=== PATIENT | female | born 1970 | race Caucasian/White ===

== ENCOUNTER → 2021-04-20 11:35 | Outpatient (CLI) | payer OTHER, SELFPAY ==
[2021-04-20 20:09] LABS: Alanine Aminotransferase 36 IU/L (<35); Albumin 4.1 g/dL (3.5-5.0); Albumin Globulin Ratio 1.4 (1.0-2.8); Alkaline Phosphatase 86 U/L (38-126); Aspartate Aminotransferase 33 IU/L (14-36); BUN Creatinine Ratio 16.4 (6-22); Bilirubin Total 0.5 mg/dL (0.2-1.3); Blood Urea Nitrogen 9 mg/dL (7-17); Calcium 9.6 mg/dL (8.4-10.2); Carbon Dioxide 34 mmol/L (22-32); Chloride 100 mmol/L (98-107); Estimated Glomerular Filt Rate > 60.0 mL/min (>60); Glucose 93 mg/dL (70-100); HEMOLYSIS < 15 (0-50); Potassium 3.4 mmol/L (3.4-5.1); Sodium 140 mmol/L (137-145); Total Protein 7.1 g/dL (6.3-8.2)
== END ==
PROVIDERS: PCP Physician Assistant Medical; Visit Provider Physician Assistant Medical
DX: E87.6 Hypokalemia (principal); I10 Essential (primary) hypertension; R07.89 Other chest pain
CPT/HCPCS: 80053

== ENCOUNTER → 2022-12-13 09:44 | Outpatient (CLI) | payer OTHER, SELFPAY ==
[2022-12-13 19:55] LABS: Add Manual Diff / Slide Review NO; Basophils Absolute Auto 0 /uL (0-100); Basophils Percent Auto 0.5 % (0-2); Eosinophils Absolute Auto 100 /uL (0-450); Eosinophils Percent Auto 1.2 % (2-4); Hematocrit 43.1 % (36-46); Hemoglobin 15.2 g/dL (12.0-16.0); Lymphocytes Absolute Auto 2200 /uL (1100-4500); Lymphocytes Percent Auto 24.2 % (25-40); Mean Corpuscular HGB Conc 35.2 % (30-36); Mean Corpuscular Hemoglobin 32.6 PG (26-34); Mean Corpuscular Volume 92.5 fL (80-100); Monocytes Absolute Auto 900 /uL (0-900); Monocytes Percent Auto 10.2 % (3-14); Neutrophils Absolute Auto 5900 /uL (1500-7000); Neutrophils Percent Auto 63.9 % (50-75); Platelet Count 268 X10^3/uL (150-400); Red Blood Cell Count 4.66 X10^6/uL (4.0-5.2); Red Cell Distribution Width 12.3 % (11.6-14.8); White Blood Cell Count 9.2 X10^3/uL (4.5-11.0)
[2022-12-13 20:02] LABS: Alanine Aminotransferase 222 IU/L (<35); Albumin 4.1 g/dL (3.5-5.0); Albumin Globulin Ratio 1.3 (1.0-2.8); Alkaline Phosphatase 189 U/L (38-126); Aspartate Aminotransferase 77 IU/L (14-36); BUN Creatinine Ratio 12.9 (6-22); Bilirubin Total 1.4 mg/dL (0.2-1.3); Blood Urea Nitrogen 8 mg/dL (7-17); Calcium 9.2 mg/dL (8.4-10.2); Carbon Dioxide 33 mmol/L (22-32); Chloride 97 mmol/L (98-107); Cholesterol 175 mg/dL (140-199); Estimated Glomerular Filt Rate > 60 mL/min (>60); Globulin 3.2 g/dL (1.7-4.1); Glucose 108 mg/dL (70-100); HDL Cholesterol 56 mg/dL (40-60); HEMOLYSIS 17 (0-50); LDL Cholesterol Calculated 98 mg/dL (<100); Potassium 3.2 mmol/L (3.4-5.1); Sodium 137 mmol/L (137-145); Total Protein 7.3 g/dL (6.3-8.2); Triglycerides 106 mg/dL (35-150)
[2022-12-13 20:32] LABS: Thyroid Stimulating Hormone 1.34 uIU/mL (0.47-4.68)
== END ==
PROVIDERS: PCP Physician Assistant Medical; Visit Provider Family Medicine
DX: I10 Essential (primary) hypertension (principal); R10.9 Unspecified abdominal pain; R79.89 Other specified abnormal findings of blood chemistry
CPT/HCPCS: 80053; 80061; 84443; 85025; 87086

== ENCOUNTER → 2022-12-18 11:01 | Outpatient (CLI) | payer OTHER, SELFPAY ==
--- NOTE | 2022-12-18 11:02 | DI.US.S_ITS ---
PROCEDURE: US ABDOMEN COMPLETE INDICATIONS: RUQ discomfort radiating to the R side of back TECHNIQUE: Real-time scanning was performed of the abdominal and retroperitoneal organs, with image documentation. COMPARISON: None. FINDINGS: Liver: Increased echogenicity with sparing along the gallbladder fossa. Gallbladder: Cholelithiasis. Mild wall thickening. Cystic duct measures 7 millimeters, which is dilated. Biliary ducts: Intrahepatic bile ducts are non-dilated. Extrahepatic bile duct caliber measures 5 mm. Normal is 6-7 mm or less in diameter, or 10 mm or less post-cholecystectomy. Pancreas: Small echogenic lesion within the anterior parenchyma of the pancreatic body measuring 1.2 x 1.1 x 0.7 centimeter. No pancreatic ductal dilation Spleen: Spleen is normal in size and homogeneous in echotexture. Kidneys: Kidneys are normal in size and echotexture. Right kidney measures 12.4 cm long; left kidney measures 10.2 cm long. No hydronephrosis or nephrolithiasis. No solid masses. Aorta: Visualized aorta is normal in caliber at less than 3 cm. Iliacs: Proximal common iliac arteries are normal in caliber at less than 2.5 cm. IVC: Intrahepatic inferior vena cava is patent. Miscellaneous: No free abdominal fluid. IMPRESSION: Mild gallbladder wall thickening with stones present. Early acute cholecystitis is not entirely excluded. Additionally, the cystic duct appears prominent, possibly indicating a stone within the cystic duct. Consider MRI/MRCP for confirmation. Echogenic focus within the anterior pancreatic body, possibly interposition of fat, less likely a solid lesion. No ductal dilation. Consider outpatient follow-up with CT or MRI (pancreatic mass protocol). Alternatively, if an MRCP is ordered today, an MRI with contrast/MRCP could be obtained which would give us this information. Increased liver echogenicity, consistent with steatosis. Dictated by: Pritesh Adams M.D. on 12/18/2022 at 12:59 Approved by: Pritesh Adams M.D. on 12/18/2022 at 13:04
== END ==
PROVIDERS: PCP Physician Assistant Medical; Referring Provider Family Medicine; Visit Provider Family Medicine
DX: K80.20 Calculus of gallbladder without cholecystitis without obstruction (principal); K82.8 Other specified diseases of gallbladder; R10.11 Right upper quadrant pain
CPT/HCPCS: 76700

== ENCOUNTER → 2023-01-05 16:05 | Outpatient (CLI) | payer OTHER, SELFPAY ==
--- NOTE | 2023-01-05 16:07 | DI.MRI.S_ITS ---
PROCEDURE: MR AB PANCREATIC/MRCP PROTOCOL INDICATIONS: Right upper quadrant pain TECHNIQUE: Coronal HASTE through the abdomen, axial 2-D FLASH in- and [id number], and breath-hold T2 FSE with fat saturation through the biliary system and pancreas. Oblique coronal and axial thin-slice HASTE, radial thick-slab HASTE centered on the extrahepatic bile ducts. Intravenous secretin: Not requested. COMPARISON: [facility], , US ABDOMEN COMPLETE, 12/18/2022, 11:31. FINDINGS: Image quality: Excellent. Pancreas and biliary system: Pancreas is normal in size and overall morphology without pancreatic ductal dilatation. There is a possible partially exophytic, arterially enhancing mass arising from the ventral pancreatic body, measuring 1.4 x 1.3 cm, otherwise isointense to the gland on T1 and T2 imaging. This may correspond to the sonographic finding. There is no signal abnormality or contrast washout on any other phase. The gallbladder contains several stones. There is no pericholecystic fluid, although there may be trace pericholecystic edema. No intra or extrahepatic biliary dilatation and no evidence of choledocholithiasis. Other solid organs: Normal size liver with a smooth margin. Moderate diffuse signal drop on T1 out of phase imaging indicating steatosis. Relative hyperintensity in the gallbladder fossa. There is an ovoid 1.9 cm mass arising from the medial limb of the left adrenal gland demonstrating signal loss on T1 out of phase imaging. The right adrenal gland is normal. The spleen is normal size and signal. Both kidneys are normal size and signal without hydronephrosis. Proximal ureters are nondilated. Nodes and vessels: No retroperitoneal or mesenteric adenopathy by size criteria. Aorta and inferior vena cava are normal in size. Bowel and peritoneum: Unenhanced bowel loops are normal in caliber. No free fluid. Lung bases: No basal pleural effusions. Heart size is normal. Bones and soft tissues: No ventral hernias. Bone marrow is of normal overall signal. IMPRESSION: 1. There is an indeterminate lesion arising from the ventral aspect of the pancreas which may correspond to the sonographic finding and most likely is artifactual. Correlation with lab values is recommended. Further imaging with CT of the abdomen for increased spatial resolution, or close follow-up MRI in 3-6 months is recommended. 2. No secondary suspicious findings of pancreatic or biliary dilatation or adenopathy. 3. Cholelithiasis without convincing MR evidence of acute cholecystitis. 4. Benign-appearing left adrenal adenoma. Dictated by: Evelyn Deluca M.D. on 01/07/2023 at 11:14 Approved by: Evelyn Deluca M.D. on 01/07/2023 at 11:47
== END ==
PROVIDERS: PCP Physician Assistant Medical; Referring Provider Family Medicine; Visit Provider Family Medicine
DX: K80.20 Calculus of gallbladder without cholecystitis without obstruction (principal); K86.89 Other specified diseases of pancreas; D35.02 Benign neoplasm of left adrenal gland
CPT/HCPCS: 74183; A9579

== ENCOUNTER → 2023-02-20 11:30 | Outpatient (CLI) | payer OTHER, SELFPAY ==
[2023-02-20 19:55] LABS: Alanine Aminotransferase 26 IU/L (<35); Albumin Globulin Ratio 1.3 (1.0-2.8); Alkaline Phosphatase 88 U/L (38-126); Aspartate Aminotransferase 28 IU/L (14-36); Bilirubin Total 0.6 mg/dL (0.2-1.3); Blood Urea Nitrogen 11 mg/dL (7-17); C-Reactive Protein Quant 0.8 mg/dL (<1.0); Calcium 9.3 mg/dL (8.4-10.2); Carbon Dioxide 30 mmol/L (22-32); Chloride 102 mmol/L (98-107); Estimated Glomerular Filt Rate > 60 mL/min (>60); Glucose 114 mg/dL (70-100); HEMOLYSIS < 15 (0-50); Potassium 3.5 mmol/L (3.4-5.1); Sodium 139 mmol/L (137-145)
[2023-02-20 20:22] LABS: Carcinoembryonic Antigen 0.5 ng/mL (0.1-3.0)
[2023-02-21 21:05] LABS: x Labcorp Estim. Avg Glu (eAG) 114 mg/dL (.); x Labcorp Hemoglobin A1c 5.6 % (4.8-5.6)
[2023-02-21 23:08] LABS: Cancer (Carbohydrate) Ag 19-9 7 U/mL (0-35)
== END ==
PROVIDERS: PCP Physician Assistant Medical; Visit Provider Surgery
DX: K80.20 Calculus of gallbladder without cholecystitis without obstruction (principal); K86.89 Other specified diseases of pancreas
CPT/HCPCS: 80053; 82378; 83036; 86140; 86301

== ENCOUNTER → 2024-06-25 11:31 | Outpatient (CLI) | payer OTHER, SELFPAY ==
[2024-06-25 19:48] LABS: Hemoglobin A1C% w Est Avg Glu 5.1 % (4.0-6.0)
[2024-06-25 19:49] LABS: Alanine Aminotransferase 28 IU/L (<35); Albumin 4.1 g/dL (3.5-5.0); Albumin Globulin Ratio 1.3 (1.0-2.8); Alkaline Phosphatase 110 U/L (38-126); Aspartate Aminotransferase 29 IU/L (14-36); BUN Creatinine Ratio 14.9 (6-22); Bilirubin Total 0.6 mg/dL (0.2-1.3); Blood Urea Nitrogen 10 mg/dL (7-17); Calcium 9.7 mg/dL (8.4-10.2); Carbon Dioxide 32 mmol/L (22-32); Chloride 103 mmol/L (98-107); Cholesterol 165 mg/dL (140-199); Estimated Glomerular Filt Rate > 60 mL/min (>60); Globulin 3.1 g/dL (1.7-4.1); Glucose 99 mg/dL (70-100); HDL Cholesterol 58 mg/dL (40-60); HEMOLYSIS < 15 (0-50); LDL Cholesterol Calculated 82 mg/dL (<100); Potassium 3.6 mmol/L (3.4-5.1); Sodium 138 mmol/L (137-145); Total Protein 7.2 g/dL (6.3-8.2); Triglycerides 125 mg/dL (35-150)
[2024-06-25 20:37] LABS: Hep C Virus Ab w/Reflex Quant NEGATIVE s/c (NEGATIVE)
== END ==
PROVIDERS: PCP Physician Assistant; Visit Provider Physician Assistant
DX: Z13.6 Encounter for screening for cardiovascular disorders (principal); I10 Essential (primary) hypertension; R79.89 Other specified abnormal findings of blood chemistry; E87.6 Hypokalemia; R73.01 Impaired fasting glucose
CPT/HCPCS: 80053; 80061; 83036; 86803